=== PATIENT | female | born 2005 | race American Indian/Alaskan Native ===

== ENCOUNTER 2025-05-21 00:15 | Emergency (ER) | payer SELFPAY ==
[~2025-05-21] VITALS: Ht 162.6 cm; Wt 59.1 kg
[~2025-05-21 00:15] MED LIST: DIPH25CA83 PO
--- NOTE | 2025-05-21 00:34 | Physician Documentation ---
History of Present Illness General Chief Complaint: ETOH Stated Complaint: ETOH Time Seen by : 00:34 Primary Medical Doctor: NO PMD History of Present Illness Initial Comments 19-year-old female brought in by EMS. Patient was a patient at a bar and reportedly had numerous alcoholic beverages. The patient was initially verbally unresponsive, but was able to answer some simple questions in route to the hospital. No known Co ingestion. History was obtained by EMS. Medication Reconciliation Allergies: Coded Allergies: No Known Allergies (Unverified , 04/03/11) Scheduled Diphenhydramine Hcl (Benadryl), 25 MG PO TID Past Medical History Past Medical History: No Pertinent History Past Surgical History: no surgical history Alcohol Use: None Drug Use: none Review of Systems Unable to obtain complete ROS: altered mental status Physical Exam Physical Exam Vital Signs: Heart Rate: 92, Respiratory Rate: 14, BP: 128/83, Pulse Oximetry: 97, Weight: 59.090 General Appearance VITALS: Reviewed and as above. GENERAL: Somnolent but arousable smells of ETOH slurred speech., no apparent distress. HEENT: Normocephalic, atraumatic, PERRL, EOMI, dry mucosa, no erythema RESPIRATORY: Lungs clear, normal breath sounds, no respiratory distress. CHEST: No accessory muscle use, no retractions CV: Regular rate, rhythm, no edema, no murmur, No: JVD GI: Soft, non-tender, bowels sounds present, no rebound, guarding, or rigidity BACK: No CVA tenderness, or swelling MUSCULOSKELETAL: No deformities, no edema SKIN: Warm and dry, no rash NEURO: Oriented x one, No motor or sensory deficit PSYCH: Normal mood and affect, no agitation Progress Results/Orders Results/Orders Completed Orders - OHLARLEN,JULIET Espino MD Ethanol (05/21/25 00:38) Normal Saline 1000ml (0.9% Sodium Chlori (05/21/25 00:40) Medications Received in ER Medications (Trade) Dose Ordered Sig/Aung Route PRN Reason Start Time Stop Time Status Last Admin Dose Admin (0.9% sodium chloride (NS) 1000ml IV soln) 2,000 ml ONCE ONCE IVB 05/21/25 00:40 05/21/25 00:41 DC 05/21/25 02:03 2,000 ML Vital Signs 05/21/25 05/21/25 05/21/25 05/21/25 00:28 00:55 00:56 02:22 Pulse 92 76 78 Resp 14 17 B/P (MAP) 128/83 99/53 (68) 104/84 (91) Pulse Ox 97 97 97 Laboratory Tests Test 05/21/25 00:28 Ethyl Alcohol Level 309 H Medical Decision Making Findings The patient became in clinically intoxicated the patient was hydrated in the emergency room with intravenous fluids, the patient awoke was able to ambulate in the emergency department and became combative and abusive to the emergency room staff. The patient's boyfriend felt comfortable taking the patient home the patient was discharged. The patient's previous hospitalizations have been reviewed. The patient's pulse oximetry was interpreted as normal and adequate. And her cardiac cath technician was interpreted as a sinus rhythm. Departure Disposition: HOME / SELF CARE / HOMELESS Impression: Primary Impression: Alcoholic intoxication Qualified Codes: F10.920 - Alcohol use, unspecified with intoxication, uncomplicated Discharge Instructions: Alcohol Intoxication Referrals: NO PRIMARY CARE PROVIDER (PCP) Signature Scribe Signature: no scribe Attestation: The note accurately reflects work and decisions made by me.Juliet Ivan MD 05/21/25 05:56 JULIET IVAN MD May 21, 2025 00:34
[2025-05-21] MEDS: normal saline 1000ML IV soln IVB ONE (02:03)
[2025-05-21 02:22] VITALS: BP 104/84; PULSE 78; RESP 17; O2SAT 97
== END 2025-05-21 02:55 | disposition home or self-care (01) ==
LOC: ER 00:16
DX: F10.129 Alcohol abuse with intoxication, unspecified (principal); Z79.899 Other long term (current) drug therapy; Y90.8 Blood alcohol level of 240 mg/100 ml or more
CPT/HCPCS: 36415; 80320; 96360; 99284; J7030